=== PATIENT | male | born 1955 | race Caucasian/White ===

== ENCOUNTER 2022-01-09 10:28 | Observation (INO) | payer OTHER, SELFPAY ==
[2022-01-09 10:45] LABS: Absolute Lymphocytes (CBC) 0.6 K/uL (0.7-4.9); Hematocrit 38.3 % (39.6-49.0); Lymphocytes % 15.6 % (15.3-44.8); MPV 7.5 fL (7.6-11.3); RBC Red Blood Cell Count 4.88 M/uL (4.33-5.43)
--- NOTE | 2022-01-09 10:57 | RAD REPORT ---
EXAM DESCRIPTION: CT - Head Brain Wo Cont - 01/09/2022 10:39 am CLINICAL HISTORY: SYNCOPE COMPARISON: No comparisons TECHNIQUE: All CT scans are performed using dose optimization technique as appropriate and may inclu de automated exposure control or mA/KV adjustment according to patient size. FINDINGS: No intracranial hemorrhage, hydrocephalus or extra-axial fluid collection.No areas of brai n edema or evidence of midline shift. Chronic small vessel ischemic changes. The paranasal sinuses and mastoids are clear. The calvarium is intact. IMPRESSION: No acute intracranial abnormality.
--- NOTE | 2022-01-09 11:04 | RAD REPORT ---
EXAM DESCRIPTION: RAD - Chest Single View - 01/09/2022 10:59 am CLINICAL HISTORY: syncope COMPARISON: No comparisons FINDINGS: Lines: None. Lungs: No evidence of edema or pneumonia. Pleural: No significant pleural effusions or pneumothorax. Cardiac: Cardiomegaly Bones: No acute fractures. Other: IMPRESSION: No acute cardiopulmonary disease.
[2022-01-09 11:09] LABS: Troponin High Sensitivity 19.6 pg/mL (<58.9)
[2022-01-09 11:11] LABS: Potassium 4.1 mmol/L (3.5-5.1)
--- NOTE | 2022-01-09 11:40 | ER ---
Nurse's Notes [facility] Name: Francis Case Age: 67 yrs Sex: Male : 1955 Arrival Date: 01/09/2022 Time: 10:30 Bed 4 Private MD: Diagnosis: syncope;anemia;Alcoholism Presentation: 01/09 10:31 Chief complaint: EMS states: Toned out for possible fall, family reported they found jl7 him sitting on the floor at the refrigerator, pt does not remember falling, pt A\T\)x 3 on arrival to ED with slow slurred speech, hx of chronic alcohol abuse, pt reports drinking Fireball, 1 gallon/daily X 30+ years. Coronavirus screen: At this time, the client does not indicate any symptoms associated with coronavirus-19. Ebola Screen: No symptoms or risks identified at this time. Initial Sepsis Screen: Does the patient meet any 2 criteria? No. Patient's initial sepsis screen is negative. Does the patient have a suspected source of infection? No. Patient's initial sepsis screen is negative. Risk Assessment: Do you want to hurt yourself or someone else? Patient reports no desire to harm self or others. Onset of symptoms is unknown. Care prior to arrival: None. 10:31 Method Of Arrival: EMS: [facility] 10:31 Acuity: ANTHONY 2 jl7 Triage Assessment: 10:30 General: Appears in no apparent distress. uncomfortable, Behavior is calm, cooperative. jl7 Pain: Denies pain. Neuro: Level of Consciousness is awake, obeys commands, Drowsy. Oriented to person, place, time. Cardiovascular: Denies chest pain, Patient's skin is warm and dry. Respiratory: Airway is patent Respiratory effort is even, unlabored, Respiratory pattern is regular, symmetrical, Denies shortness of breath. Derm: Skin is pink, warm \T\ dry. Historical: - Allergies: 11:07 No Known Allergies; jl7 - Home Meds: 11:07 None [Active]; jl7 - PMHx: 11:07 Atrial fibrillation; jl7 - PSHx: 11:07 Cadriac stent x 2; ablation; jl7 - Immunization history:: Adult Immunizations unknown. - Social history:: Smoking status: unknown Patient uses alcohol, on a daily basis. patient/guardian reports chronic longstanding heavy alcohol consumption. Screenin:00 Abuse screen: Denies threats or abuse. Denies injuries from another. Nutritional jl7 screening: No deficits noted. Tuberculosis screening: No symptoms or risk factors identified. Fall Risk Fall in past 12 months (25 points). No secondary diagnosis (0 pts). IV access (20 points). Ambulatory Aid- None/Bed Rest/Nurse Assist (0 pts). Gait- Impaired (20 pts.). Mental Status- Overestimates/Forgets Limitations (15 pts.). Total Lynch Fall Scale indicates High Risk Score (45 or more points). Fall prevention measures have been instituted. Side Rails Up X 2 Placed Close to Nursing Station 1:1 Attendant Assigned Frequent Obs/Assessments Occuring Family Present and informed to notify staff if the need to leave the bedside As available patient and family educated on Fall Prevention Program and Strategies. Assessment: 10:40 General: Appears in no apparent distress. Behavior is calm, cooperative, drowsy. Pain: ww Denies pain. Neuro: Level of Consciousness is awake, alert, obeys commands, Oriented to person, place, Moves all extremities. Facial symmetry appears normal. Cardiovascular: Patient's skin is warm and dry. Rhythm is regular Chest pain is denied. Respiratory: Airway is patent Respiratory effort is even, unlabored, Respiratory pattern is regular, symmetrical. GI: No signs and/or symptoms were reported involving the gastrointestinal system. Abdomen is non-distended. : No signs and/or symptoms were reported regarding the genitourinary system. EENT: No signs and/or symptoms were reported regarding the EENT system. Derm:. 11:33 Reassessment: Patient appears in no apparent distress at this time. Patient and/or ww family updated on plan of care and expected duration. Pain level reassessed. Patient is alert, oriented x 3, equal unlabored respirations, skin warm/dry/pink. Spouse at bedside. 11:55 Reassessment: Pt's reports he drinks 1-2 glasses of Fireball whiskey/day. jl7 12:30 Reassessment: Patient appears in no apparent distress at this time. No changes from ww previously documented assessment. Patient and/or family updated on plan of care and expected duration. Pain level reassessed. patient sleeping in bed with spouse at bedside. 13:30 Reassessment: Patient appears in no apparent distress at this time. No changes from ww previously documented assessment. Patient and/or family updated on plan of care and expected duration. Pain level reassessed. Patient is alert, oriented x 3, equal unlabored respirations, skin warm/dry/pink. patient sleeping with family at bedside. 14:30 Reassessment: Patient appears in no apparent distress at this time. No changes from ww previously documented assessment. Patient and/or family updated on plan of care and expected duration. Pain level reassessed. patient sleeping with son and spouse at bedside. 15:05 Reassessment: Patient appears in no apparent distress at this time. No changes from ww previously documented assessment. Patient and/or family updated on plan of care and expected duration. Pain level reassessed. Patient is alert, oriented x 3, equal unlabored respirations, skin warm/dry/pink. patient sitting up in bed eating lunch. Patient tolerated food well. 16:25 Reassessment: Patient appears in no apparent distress at this time. No changes from ww previously documented assessment. Patient and/or family updated on plan of care and expected duration. Pain level reassessed. Patient is alert, oriented x 3, equal unlabored respirations, skin warm/dry/pink. patient visiting with family. 17:19 Reassessment: Patient appears in no apparent distress at this time. No changes from ww previously documented assessment. Patient and/or family updated on plan of care and expected duration. Pain level reassessed. Patient is alert, oriented x 3, equal unlabored respirations, skin warm/dry/pink. 20:05 General: Appears in no apparent distress. comfortable, Behavior is calm, cooperative. al4 Pain: Denies pain. Neuro: Level of Consciousness is awake, alert, obeys commands, Oriented to person, place, time, situation. Cardiovascular: Capillary refill < 3 seconds Patient's skin is warm and dry. Respiratory: Airway is patent Respiratory effort is unlabored. Musculoskeletal: Circulation, motion, and sensation intact. Vital Signs: 10:31 BP 136 / 87; Pulse 65; Resp 14; Temp 98.1; Pulse Ox 98% ; Pain 0/10; jl7 11:16 BP 123 / 78; Pulse 59; Resp 15; Pulse Ox 100% ; Weight 81.65 kg; Pain 0/10; jl7 12:00 BP 125 / 68; Pulse 68; Resp 16; Pulse Ox 100% ; ww 13:33 BP 107 / 65; Pulse 60; Resp 16; Pulse Ox 100% ; ww 14:30 BP 165 / 95; Pulse 70; Resp 17; Pulse Ox 100% ; ww 15:30 BP 141 / 94; Pulse 61; Resp 14; Pulse Ox 100% ; ww 16:30 BP 117 / 68; Pulse 72; Resp 14; Pulse Ox 94% ; ww 17:40 BP 112 / 64; Pulse 58; Resp 16; Pulse Ox 100% ; ww 19:30 BP 122 / 83; Pulse 83; Resp 22; Pulse Ox 91% ; al4 ED Course: 10:30 Patient arrived in ED. ms3 10:30 Sumit Andersen DO is Attending Physician. ms3 10:30 Demarcus Kumar, KENISHA is Primary Nurse. jl7 10:30 Patient has correct armband on for positive identification. Placed in gown. Bed in low jl7 position. Call light in reach. Side rails up X2. satellite project site monitor on. Pulse ox on. NIBP on. Warm blanket given. 10:30 Initial lab(s) drawn, by ED staff, sent to lab. COVID swab sent to lab. Inserted saline jl7 lock: 20 gauge in right antecubital area, using aseptic technique. Blood collected. 10:31 Arm band placed on right wrist. jl7 10:36 Triage completed. jl7 10:38 EKG done, by ED staff, reviewed by Sumit Andersen DO. jl7 10:41 CT Head Brain wo Cont In Process Unspecified. EDMS 11:01 XRAY Chest (1 view) In Process Unspecified. EDMS 11:38 Bryson Naqvi MD is Hospitalizing Provider. ms3 19:19 Primary Nurse role handed off by Demarcus Kumar, KENISHA mw2 20:11 No provider procedures requiring assistance completed. Patient admitted, IV remains in al4 place. Administered Medications: No medications were administered Outcome: 11:39 Decision to Hospitalize by Provider. ms3 20:11 Admitted to Med/surg room 230. al4 20:11 Condition: stable 20:11 Instructed on the need for admit, Demonstrated understanding of instructions. 21:05 Patient left the ED. bb Signatures: Dis[facility] Bhargavi Claudio RN RN bb Smirch, Shelby, RN RN Demarcus Matthews RN RN jl7 Quincy Ku mw2 Sumit Andersen, DO ESTEVEZ ms3 Aguilar Fischer al4 Heather Gaxiola, RN RN ww Corrections: (The following items were deleted from the chart) 11:16 10:30 BP 123 / 78; Pulse 59bpm; Resp 15bpm; Pulse Ox 100%; 81.65 kg; Pain 0/10; jl7 [email or web address] 17:35 17:35 Patient left the ED. [facility] 17:39 17:39 Reassessment: Patient appears in no apparent distress at this time. No changes ww from previously documented assessment. Patient and/or family updated on plan of care and expected duration. Pain level reassessed. patient sleeping with son and spouse at bedside ww
--- NOTE | 2022-01-09 11:40 | EDPHYS ---
Physician Documentation [facility] Name: Francis Case Age: 67 yrs Sex: Male : 1955 Arrival Date: 01/09/2022 Time: 10:30 Bed 4 Private MD: ED Physician Sumit Andersen HPI: 01/09 10:30 This 67 yrs old Male presents to ER via EMS with complaints of syncope. ms3 10:30 The patient has experienced syncope, lost consciousness. Onset: The symptoms/episode ms3 began/occurred this morning. Duration: This was a single episode, that lasted an unknown period of time. Context: found patient on the floor . Associated injury: The patient did not suffer any apparent associated injury. Associated signs and symptoms: The patient has no apparent associated signs or symptoms. 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 Patient denies pain. Patient denies alleviating or inciting factors. Patient denies fevers, chills nausea, or vomiting.. Historical: - Allergies: 11:07 No Known Allergies; jl7 - Home Meds: 11:07 None [Active]; jl7 - PMHx: 11:07 Atrial fibrillation; jl7 - PSHx: 11:07 Cadriac stent x 2; ablation; jl7 - Immunization history:: Adult Immunizations unknown. - Social history:: Smoking status: unknown Patient uses alcohol, on a daily basis. patient/guardian reports chronic longstanding heavy alcohol consumption. ROS: 10:30 Constitutional: Negative for fever, and chills. Eyes: Negative for injury, pain, ms3 redness, and discharge, Neck: Negative for injury, pain, and swelling, Cardiovascular: Negative for chest pain, and palpitations. Respiratory: Negative for shortness of breath, cough, wheezing, and pleuritic chest pain, Abdomen/GI: Negative for abdominal pain, nausea, vomiting, diarrhea, and constipation, Back: Negative for injury and pain, MS/Extremity: Negative for injury and deformity, Skin: Negative for injury, rash, and discoloration. 10:30 Neuro: Positive for syncope. 10:30 All other systems are negative. Exam: 10:30 Constitutional: This is a well developed, well nourished patient who is awake, alert, ms3 and in no acute distress. Head/Face: Normocephalic, atraumatic. ENT: Nares patent. No nasal discharge, no septal abnormalities noted. Tympanic membranes are normal and external auditory canals are clear. Oropharynx with no redness, swelling, or masses, exudates, or evidence of obstruction, uvula midline. Mucous membranes moist. Chest/axilla: Normal chest wall appearance and motion. Nontender with no deformity. Cardiovascular: Regular rate and rhythm with a normal S1 and S2. No gallops, murmurs, or rubs. Normal PMI, no JVD. No pulse deficits. Respiratory: Lungs have equal breath sounds bilaterally, clear to auscultation and percussion. No rales, rhonchi or wheezes noted. No increased work of breathing, no retractions or nasal flaring. Abdomen/GI: Soft, non-tender, with normal bowel sounds. No distension or tympany. No guarding or rebound. No evidence of tenderness throughout. Back: No spinal tenderness. No costovertebral tenderness. Full range of motion. Skin: Warm, dry with normal turgor. Normal color with no rashes, no lesions, and no evidence of cellulitis. Psych: Awake, alert, with orientation to person, place and time. Behavior, mood, and affect are within normal limits. 10:58 ECG was reviewed by the Attending Physician. ms3 Vital Signs: 10:31 BP 136 / 87; Pulse 65; Resp 14; Temp 98.1; Pulse Ox 98% ; Pain 0/10; jl7 11:16 BP 123 / 78; Pulse 59; Resp 15; Pulse Ox 100% ; Weight 81.65 kg; Pain 0/10; jl7 12:00 BP 125 / 68; Pulse 68; Resp 16; Pulse Ox 100% ; ww 13:33 BP 107 / 65; Pulse 60; Resp 16; Pulse Ox 100% ; ww 14:30 BP 165 / 95; Pulse 70; Resp 17; Pulse Ox 100% ; ww 15:30 BP 141 / 94; Pulse 61; Resp 14; Pulse Ox 100% ; ww 16:30 BP 117 / 68; Pulse 72; Resp 14; Pulse Ox 94% ; ww 17:40 BP 112 / 64; Pulse 58; Resp 16; Pulse Ox 100% ; ww 19:30 BP 122 / 83; Pulse 83; Resp 22; Pulse Ox 91% ; al4 MDM: 10:30 Patient medically screened. ms3 11:36 Data reviewed: vital signs, lab test result(s), EKG, radiologic studies. 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 Interpretation: normal. Counseling: I had a detailed discussion with the patient and/or guardian regarding: the historical points, exam findings, and any diagnostic results supporting the discharge/admit diagnosis, lab results, radiology results, the need for further work-up and treatment in the hospital. ED course: Discussed case with Dr Owens and he accepts patient as observation. Patient and his understand/ agree with plan. All questions answered. Patient remains in stable condition.. 01/09 10:31 Order name: Basic Metabolic Panel; Complete Time: 11:29 ms3 01/09 10:31 Order name: CBC with Diff; Complete Time: 11:09 ms3 01/09 10:31 Order name: Troponin HS; Complete Time: 11: ms3 01/09 11:42 Order name: COVID-19 SARS RT PCR (Document "Date of Onset" if Symptomatic) 01/09 12:09 Order name: Urinalysis EDFL 01/09 12:09 Order name: Basic Metabolic Panel EDFL 01/09 10:31 Order name: XRAY Chest (1 view); Complete Time: 11:09 ms3 01/09 10:31 Order name: EKG; Complete Time: 10:32 ms3 01/09 10:31 Order name: CT Head Brain wo Cont; Complete Time: 11:09 ms3 01/09 12:09 Order name: Basic Metabolic Panel EDFL 01/09 12:09 Order name: Magnesium EDFL 01/09 12:09 Order name: Magnesium EDFL 01/09 12:09 Order name: Phosphorus EDFL 01/09 12:09 Order name: Phosphorus EDFL 01/09 10:31 Order name: Cardiac monitoring; Complete Time: 10:49 ms3 01/09 10:31 Order name: EKG - Nurse/Tech; Complete Time: 11:07 ms3 01/09 10:31 Order name: IV Saline Lock; Complete Time: 10:49 ms3 01/09 10:31 Order name: Labs collected and sent; Complete Time: 10:49 ms3 01/09 10:31 Order name: O2 Per Protocol; Complete Time: 10:49 ms3 01/09 10:31 Order name: O2 Sat Monitoring; Complete Time: 10:49 ms3 01/09 12:09 Order name: Patient Safety Orders EDMS 01/09 12:09 Order name: Regular EDMS 01/09 17:17 Order name: Diet Heart Healthy; Complete Time: 17:18 bd EC:58 Rate is 61 beats/min. Rhythm is regular. QRS Dalton is Normal. ID interval is normal. ms3 Clinical impression: NSR w/ Non-specific ST/T Changes. Interpreted by me. Administered Medications: No medications were administered Disposition Summary: 01/09/22 11:39 Hospitalization Ordered Hospitalization Status: Observation ms3 Provider: Bryson Naqvi ms3 Condition: Stable ms3 Problem: new ms3 Symptoms: have improved ms3 Bed/Room Type: Standard ms3 Location: Telemetry/MedSurg (observation)(01/09/22 18:37) dw Room Assignment: [facility](01/09/22 18:37) Diagnosis - syncope ms3 - anemia ms3 - Alcoholism ms3 Forms: - Medication Reconciliation Form ms3 - SBAR form ms3 Signatures: Dispatcher [employer] Gail Matos RN RN Nicole Cheney RN RN ss Demarcus Kumar RN RN jl7 Sumit Andersen DO DO ms3 Corrections: (The following items were deleted from the chart) 17:36 11:39 Telemetry/MedSurg (observation) ms3 ss 17:36 11:39 ms3 ss 18:37 17:36 [facility] ER HOLD ss dw 18:37 17:36 ERHOLD- ss dw
[2022-01-09] MEDS ORDERED: ONDANSETRON 4 MG/2 ML VIAL IV PRN (12:03)
[2022-01-09] MEDS ORDERED: ACETAMINOPHEN 500 MG TAB PO PRN (12:03)
--- NOTE | 2022-01-09 17:25 | P.HP ---
Certification for Inpatient With expected LOS: <2 Midnights Patient will require the following post-hospital care: None Practitioner: I am a practitioner with admitting privileges, knowledge of patient current condition, hospital course, and medical plan of care. Services: Services provided to patient in accordance with Admission requirements found in Title 42 Section 412.3 of the Code of Federal Regulations Patient History Date of Service: 01/09/22 Reason for admission: Alcohol abuse, syncope. History of Present Illness: 67-year-old male patient medical significant for atrial fibrillation, hypertension, alcohol abuse who was evaluated in the emergency room after he had a syncopal episode abdomen. Patient was reported to have had issues with syncope without any preceding chest pain or dizzy spells. Patient was reported at the flattered had an episode of unconsciousness that was not preseizure by a prodromal symptom. He was brought to the emergency room by family member and initial work-up was nonrevealing. Labs with no pertinent for major abnormalities and he had EKG that showed no abnormality and rhythm strip on telemetry was nonrevealing. He was asked to be admitted for inpatient work-up of syncope. He denies chest pain, nausea, vomiting, diarrhea episode. Allergies No Known Allergies Allergy (Unverified 01/09/22 15:50) Home medications list reviewed: Yes (, Alcohol abuse.) - Social History Alcohol use: Yes CD- Drugs: No Review of Systems Eyes: Unremarkable ENT: Unremarkable Respiratory: Unremarkable Cardiovascular: As per HPI Gastrointestinal: Unremarkable Genitourinary: Unremarkable Musculoskeletal: Unremarkable Neurological: Unremarkable Physical Examination - Physical Exam General: Alert, Oriented x3 HEENT: Atraumatic, Normocephalic Neck: Supple Respiratory: Clear to auscultation bilaterally Cardiovascular: Regular rate/rhythm, Normal S1 S2 Gastrointestinal: Soft and benign Neurological: Normal strength at 5/5 x4 extr, Cranial nerves 3-12 intact - Studies Laboratory Data (last 24 hrs) 01/09/22 10:36: WBC 4.1 L, Hgb 12.5 L, Hct 38.3 L, Plt Count 149 L 01/09/22 10:36: Sodium 137, Potassium 4.1, BUN 22 H, Creatinine 1.02, Glucose 86 Assessment and Plan - Plan Syncope: Etiology of syncope is yet to be fully determined however with history of alcohol abuse and alcohol ingestion on acute basis there is concern for alcohol induced syncope. Well will continue on telemetry, obtain carotid Doppler ultrasound and echocardiogram to assess cardiac function. We will continue telemetry monitoring. We will trend troponin. Alcohol abuse: Patient does have history of significant alcohol use. We will continue care with alcohol withdrawal monitoring. We will start multivitamin and thiamine supplementation. We will consider strongly starting benzodiazepine for alcohol withdrawal management. History of chronic A. fib We will continue telemetry monitoring and rate control medication. Echocardiogram today to assess cardiac function. Prophylaxis: Lovenox for DVT prophylaxis. Discharge Plan: Home - Advance Directives Does patient have a Living Will: No Does patient have a Durable POA for Healthcare: No
[2022-01-09] MEDS ORDERED: LORazepam 2 MG/ML VIAL IV PRN (18:10)
[2022-01-09] MEDS ORDERED: PNEUMOCOCCAL VACCINE 0.5 ML IMVAC ONE (20:00)
[2022-01-09] MEDS: FOLIC ACID 1 MG, MULTIVITAMINS INJ 10 ML, THIAMINE HCL 100 MG in NA CHLORIDE 0.9% 1,000 ML IV SCH (21:07)
[2022-01-09] MEDS: ENOXAPARIN 40 MG/0.4 ML SQ SCH (21:58)
[2022-01-09 22:57] VITALS: O2SAT 96; BMI 27.9
[2022-01-10 04:05] LABS: Magnesium 1.7 mg/dL (1.8-2.4); Phosphorus 2.8 mg/dL (2.5-4.9); Potassium 3.9 mmol/L (3.5-5.1)
[2022-01-10] MEDS ORDERED: POTASSIUM CL SA 10 MEQ TAB PO ONE (04:34)
[2022-01-10] MEDS ORDERED: MAGNESIUM SULFATE 1 gm IVPB 1 GM/100 ML BAG IV ONE (06:00)
--- NOTE | 2022-01-10 07:55 | EKG ---
Test Date: 2022-01-09 Test Time: 10:58:16 Director Workforce Management: LORRI MEASUREMENT RESULTS: Intervals: Rate: 61 TX: 176 QRSD: 96 QT: 456 QTc: 459 [place]: P: 80 TX: 176 QRS: 93 T: 47 INTERPRETIVE STATEMENTS: Normal sinus rhythm Rightward axis Pulmonary disease pattern ST & T wave abnormality, consider anterior ischemia Abnormal ECG Compared to ECG 01/09/2022 10:34:19 No significant changes Electronically Signed On 01-10-22 07:52:39 CDT by Devaughn Negron
--- NOTE | 2022-01-10 07:55 | EKG ---
Test Date: 2022-01-09 Test Time: 10:34:19 Primary Care Nurse Practitioner: LORRI MEASUREMENT RESULTS: Intervals: Rate: 63 IL: 166 QRSD: 94 QT: 444 QTc: 454 [place]: P: 125 IL: 166 QRS: 112 T: 23 INTERPRETIVE STATEMENTS: Suspect arm lead reversal, interpretation assumes no reversal Undetermined rhythm Right axis deviation Pulmonary disease pattern ST & T wave abnormality, consider anterior ischemia Abnormal ECG No previous ECG available for comparison Electronically Signed On 01-10-22 07:52:40 CDT by Devaughn Negron
--- NOTE | 2022-01-10 08:31 | P.PN ---
Subjective Date of Service: 01/11/22 Chief Complaint: Alcohol abuse, syncope. Subjective: No new changes Physical Examination - Vital Signs Temperature: 97.5 F Blood Pressure: 127/76 Pulse: 64 Respirations: 16 Pulse Ox (%): 98 - Physical Exam General: Alert, Oriented x3 HEENT: Atraumatic, Normocephalic Neck: Supple Respiratory: Clear to auscultation bilaterally Cardiovascular: Regular rate/rhythm, Normal S1 S2 Gastrointestinal: Soft and benign Neurological: Normal speech, Normal strength at 5/5 x4 extr, Cranial nerves 3-12 intact - Studies Laboratory Data (last 24 hrs) 01/09/22 10:36: WBC 4.1 L, Hgb 12.5 L, Hct 38.3 L, Plt Count 149 L 01/09/22 10:36: Sodium 137, Potassium 4.1, BUN 22 H, Creatinine 1.02, Glucose 86 Assessment And Plan - Plan Syncope: No development. Has been stable. Telemetry revealed no significant abnormality. We will follow closely. Alcohol abuse: Stable symptom malone. We will continue to monitor for signs of alcohol withdrawal. We will continue thiamine and a multivitamin supplement History of chronic A. fib We will continue telemetry monitoring and rate control medication. Echocardiogram today to assess cardiac function. Prophylaxis: Lovenox for DVT prophylaxis. For possible discharge in the next 24hr.
[2022-01-10] MEDS: FOLIC ACID 1 MG, MULTIVITAMINS INJ 10 ML, THIAMINE HCL 100 MG in NA CHLORIDE 0.9% 1,000 ML IV SCH (08:50)
[2022-01-10] MEDS: ENOXAPARIN 40 MG/0.4 ML SQ SCH (08:50)
[2022-01-10] MEDS ORDERED: THIAMINE HCL 100 MG TABLET PO SCH (09:00)
[2022-01-10 12:48] LABS: Urine Appearance Clear (Clear); Urine Bilirubin Negative (Negative); Urine Blood Negative (Negative); Urine Color Yellow (Yellow); Urine Glucose Negative (Negative); Urine Protein Negative (Negative); Urine Specific Gravity 1.025 (1.005-1.030); Urine pH 6.5 (5.0-7.0)
[2022-01-10 12:54] LABS: Urine Microscopic Reflex NO UMIC
[2022-01-11] MEDS ORDERED: ALPRAZOLAM 0.5 MG TABLET PO ONE (00:41)
[2022-01-11 06:00] LABS: Magnesium 1.9 mg/dL (1.8-2.4)
[2022-01-11] MEDS: ENOXAPARIN 40 MG/0.4 ML SQ SCH (07:46)
[2022-01-11] MEDS ORDERED: FOLIC ACID 1 MG TABLET PO SCH (09:00)
[2022-01-11] MEDS ORDERED: THIAMINE HCL 100 MG TABLET PO SCH (09:00)
[2022-01-11] MEDS ORDERED: MULTIVITAMIN TAB PO SCH (09:00)
--- NOTE | 2022-01-11 10:56 | P.DS ---
Admission Date: 01/09/22 Discharge Date: 01/11/22 Disposition: ROUTINE DISCHARGE Discharge Condition: GOOD Reason for Admission: Alcohol abuse, syncope. Brief History of Present Illness: 67-year-old male patient medical significant for atrial fibrillation, hypertension, alcohol abuse who was evaluated in the emergency room after he had a syncopal episode abdomen. Patient was reported to have had issues with syncope without any preceding chest pain or dizzy spells. Patient was reported at the flattered had an episode of unconsciousness that was not preseizure by a prodromal symptom. He was brought to the emergency room by family member and initial work-up was nonrevealing. Labs with no pertinent for major abnormalities and he had EKG that showed no abnormality and rhythm strip on telemetry was nonrevealing. He was asked to be admitted for inpatient work-up of syncope. He denies chest pain, nausea, vomiting, diarrhea episode. Hospital Course: Over the course of his observation in inpatient he had no significant abnormality. He had no issues with chest pain, tachycardia, feeling of jitteriness or any signs of alcohol withdrawal. His home medications were continued and blood pressure remained stable. He was deemed stable for discharge today to follow-up with his primary care doctor. Alcohol abuse discussion made and patient will decide about his long-term use of alcohol. He did state that he thought he had issues with excessive glucose particular he ate and that could have been responsible for his syncopal episode. Vital Signs/Physical Exam: Temp Pulse Resp BP Pulse Ox 97.5 F 64 16 127/76 98 01/11/22 10:51 01/11/22 10:51 01/11/22 10:51 01/11/22 10:51 01/11/22 10:51 General: Alert, Oriented x3 HEENT: Atraumatic, Normocephalic Respiratory: Normal air movement Cardiovascular: Regular rate/rhythm, Normal S1 S2 Gastrointestinal: Soft and benign Neurological: Normal speech, Normal strength at 5/5 x4 extr, Cranial nerves 3-12 intact Laboratory Data at Discharge: WBC 4.1 K/uL (4.3-10.9) L 01/09/22 10:36 Hgb 12.5 g/dL (13.6-17.9) L 01/09/22 10:36 Hct 38.3 % (39.6-49.0) L 01/09/22 10:36 Plt Count 149 K/uL (152-406) L 01/09/22 10:36 Sodium 139 mmol/L (136-145) 01/11/22 05:25 Potassium 4.0 mmol/L (3.5-5.1) 01/11/22 05:25 BUN 11 mg/dL (7-18) 01/11/22 05:25 Creatinine 0.88 mg/dL (0.55-1.3) 01/11/22 05:25 Glucose 92 mg/dL (74-106) 01/11/22 05:25 Phosphorus 2.8 mg/dL (2.5-4.9) 01/10/22 03:10 Magnesium 1.9 mg/dL (1.8-2.4) 01/11/22 05:25 Home Medications: ALPRAZolam [Alprazolam] 2 mg PO TID PRN 01/10/22 Citalopram Hydrobromide [Citalopram HBr] 20 mg PO DAILY 01/10/22 Gabapentin 1 tab PO BID 01/10/22 Pantoprazole [Protonix Tab*] 1 tab PO DAILY 01/10/22 carisoprodoL [Carisoprodol] 1 tab PO BID PRN 01/10/22 Diet: AHA Activity: Ad mauro
[2022-01-11 13:33] VITALS: BP 147/81; TEMP 98.4
== END 2022-01-11 14:00 | disposition home or self-care (01) ==
LOC: ER 10:28 → ERHOLD 15:59 → 2ND 20:14
PROVIDERS: ADMIT Internal Medicine Nephrology; ATTEND Internal Medicine Nephrology
DX: R55 Syncope and collapse (principal); F10.10 Alcohol abuse, uncomplicated; I48.91 Unspecified atrial fibrillation; I10 Essential (primary) hypertension; D64.9 Anemia, unspecified
CPT/HCPCS: 93005 ×2; 85025; 80048 ×3; 36415 ×2; 83735 ×2; 84100; 81003; 84484; 70450; 71045; 99285; U0003; J3411; J1650 ×3; J3475; J7030; G0378 ×2